=== PATIENT | male | born 1940 | race Caucasian/White ===

== ENCOUNTER 2017-03-13 14:12 | Emergency (ER) | payer OTHER ==
[~2017-03-13] VITALS: Ht 185.4 cm; Wt 85.2 kg
[2017-03-13] MEDS ORDERED: TOBRAMYCIN0.3 % OS (14:54)
[2017-03-13 15:15] VITALS: BP 138/70
== END 2017-03-13 15:15 | disposition home or self-care (01) | DRG 125 ==
LOC: ED 14:12
DX: S05.02XA Injury of conjunctiva and corneal abrasion without foreign body, left eye, initial encounter (principal); X58.XXXA Exposure to other specified factors, initial encounter; Y92.009 Unspecified place in unspecified non-institutional (private) residence as the place of occurrence of the external cause